=== PATIENT | female | born 1995 | race Caucasian/White ===

== ENCOUNTER 2019-02-05 06:52 | Observation (INO) ==
[2019-02-05] MEDS ORDERED: Epidural Premix (fent/bupiv) 110 ML EP SCH (09:00)
[2019-02-05 09:25] LABS: Amphetamine Screen,Urine Negative ng/mL (Cutoff=1000); Barbiturate Screen,Urine Negative ng/mL (Cutoff=200); Benzodiazepines Screen,Urine Negative ng/mL (Cutoff=200); Cannabinoid Screen,Urine Negative ng/mL (Cutoff = 50); Cocaine Screen,Urine Negative ng/mL (Cutoff= 300); Opiate Screen,Urine Negative ng/mL (Cutoff=300); Phencyclidine Screen,Urine Negative ng/mL (Cutoff=25)
--- NOTE | 2019-02-05 09:47 | Discharge Summary ---
Date of Encounter: 02/05/19 Time of Encounter: 09:46 - Discharge Diagnosis (1) 39 weeks gestation of Priority: Primary Status: Acute Comments: Admit to observation for labor evaluation (2) NST (non-stress test) reactive Priority: Secondary Status: Acute Comments: FHR 135 bpm, moderate variability, +15x15 accels, ocassional early decel. (3) False labor after 37 completed weeks of gestation Priority: Secondary Status: Acute Comments: No cervical change in >2 hrs. Patient is scheduled for IOL on 02/08/[address] Rowland Labor precautions given and patient understands when to return. Data Procedures and tests throughout hospitalization: Laboratory Tests 02/05/19 09:04 Urine Opiates Screen Negative Ur Buprenorphine Scrn Negative Ur Barbiturates Screen Negative Ur Phencyclidine Scrn Negative Ur Amphetamines Screen Negative U Benzodiazepines Scrn Negative Urine Cocaine Screen Negative U Marijuana (THC) Screen Negative Ur Drug Screen Interp See Below Labs on day of discharge: Labs from last 24 hours 02/05/19 09:04 Urine Opiates Screen Negative Ur Buprenorphine Scrn Negative Ur Barbiturates Screen Negative Ur Phencyclidine Scrn Negative Ur Amphetamines Screen Negative U Benzodiazepines Scrn Negative Urine Cocaine Screen Negative U Marijuana (THC) Screen Negative Ur Drug Screen Interp See Below Date of admission: 02/05/19 06:52 Discharging clinician: Lynsey Moya Anticipated date of discharge: 02/05/19 - Patient Status Disposition: Home, Self-Care Condition: Good Functional capacity at discharge: independent ambulation Overall status at discharge: patient is progressing back to baseline - Discharge Instructions Follow Up With: Janeen Rowland MD [Partnered Physician] - - Diet and Activity Activity: resume usual activities as tolerated Diet: regular diet Hospital Course [employer]IP [employer]ATCHER Hospital course: Naty arrived this morning with complaint of possible labor. She reports positive movement and denies vaginal bleeding and fluid leakage. She does report contractions every 3-4 minutes. SVE 1-2 cm without change in >2 hrs. Patient was given the option to be monitoring for an additional hour due to her distance from hospital but she declined at this time. She is to return for more painful contractions, vaginal bleeding, or SROM. She is to return on for scheduled IOL if she does not go into labor prior. Time Attestation: Total time spent providing and/or coordinating discharge services: Time Spent: Less than 30 minutes Exam - Constitutional General appearance IM: A&O X 3, pleasant, no acute distress, answers questions appropriately - Respiratory Respiratory exam: Present: CTAB. Absent: respiratory distress - Cardiovascular Cardiovascular exam IM: Present: RRR, +S1, +S2. Absent: irregular rhythm - GI/Abdominal GI/Abdominal exam IM: normal bowel sounds, soft - Rectal Rectal exam: deferred - External exam: normal external exam Uterine Tone: Firm - Extremities Exam Extremities exam IM: Present: full ROM, normal capillary refill, normal inspection. Absent: calf tenderness - Neurological Exam Neurological exam: alert, normal gait, oriented X3 - VTE Reasons for not Prescribing Prophylaxis: Treatment not Indicated - Low risk for VTE
== END 2019-02-05 10:01 | disposition home or self-care (01) ==
LOC: 1NENULAB
PROVIDERS: ADMIT Advanced Practice Midwife; ATTEND Advanced Practice Midwife

== ENCOUNTER 2019-02-05 18:05 | Inpatient (IN) ==
[~2019-02-05 18:05] MED LIST: *HR* Nalbuphine 10 MG/ML AMPUL IVP PRN; Famotidine 20 MG/2 ML VIAL IVP PRN; Lidocaine 1% 20 ML MDV INFILT PRN; Metoclopramide 10 MG/2 ML VIAL IVP PRN; Naloxone 0.4 MG/ML INJ IVP PRN; Ondansetron 4 MG/2 ML VIAL IVP PRN
[2019-02-05] MEDS ORDERED: Oxytocin 20 units/ LR 1000 mL 20 UNIT/1,000 ML BAG IVC SCH (18:15)
[2019-02-05] MEDS ORDERED: Ringers Solution, Lactated 1,000 ML IVC SCH (18:15)
[2019-02-05 18:51] LABS: Basophils % 0.2 %; Eosinophils # 0.1 K/mcL (0.0-0.6); Eosinophils % 0.6 %; Hematocrit 36.4 % (35.3-44.9); Hemoglobin 12.2 g/dL (11.5-15.4); Immature Granulocytes % 0.7 % (0-4); Lymphocytes # 2.4 K/mcL (0.6-4.6); Lymphocytes % 17.4 %; Mean Corpuscular HGB Conc 33.5 g/dL (31.6-35.5); Mean Corpuscular Hemoglobin 30.7 pg (28.0-33.3); Mean Corpuscular Volume 91.7 fL (83.0-100.0); Mean Platelet Volume 10.4 fL (9.4-12.4); Monocytes # 0.9 K/mcL (0.0-1.3); Monocytes % 6.5 %; Neutrophils # 10.2 K/mcL (1.6-8.9); Platelet Count 262 K/mcL (140-400); Red Blood Count 3.97 M/mcL (3.82-4.97); Red Cell Distribution Width 13.1 % (11.5-14.5); Segmented Neutrophils % 74.6 %; White Blood Count 13.6 K/mcL (4.3-11.1)
[2019-02-05 18:57] LABS: Amphetamine Screen,Urine Negative ng/mL (Cutoff=1000); Barbiturate Screen,Urine Negative ng/mL (Cutoff=200); Benzodiazepines Screen,Urine Negative ng/mL (Cutoff=200); Cannabinoid Screen,Urine Negative ng/mL (Cutoff = 50); Cocaine Screen,Urine Negative ng/mL (Cutoff= 300); Opiate Screen,Urine Negative ng/mL (Cutoff=300); Phencyclidine Screen,Urine Negative ng/mL (Cutoff=25)
[2019-02-05] MEDS: Epidural Premix (fent/bupiv) 110 ML EP SCH (20:47)
[2019-02-06] MEDS: Epidural Premix (fent/bupiv) 110 ML EP SCH (01:59)
[2019-02-06] MEDS ORDERED: Acetaminophen 325 MG TABLET PO PRN (08:47)
[2019-02-06] MEDS ORDERED: Oxytocin 20 units/ LR 1000 mL 20 UNIT/1,000 ML BAG IVC SCH (08:47)
[2019-02-06] MEDS ORDERED: Oxytocin 20 units/ LR 1000 mL 20 UNIT/1,000 ML BAG IVC ONE (08:55)
[2019-02-06] MEDS ORDERED: Prenatal Vit/FA 1 EACH TABLET PO SCH (09:00)
[2019-02-06] MEDS: Ibuprofen 600 MG TABLET PO PRN (22:39)
[2019-02-07] MEDS: Ibuprofen 600 MG TABLET PO PRN (08:40)
[2019-02-07 08:42] VITALS: BP 123/71
== END 2019-02-07 15:00 | disposition home or self-care (01) | DRG 806 ==
LOC: 1NENULAB → 1NENUOBS 02-06 10:20
PROVIDERS: ADMIT Student in an Organized Health Care Education/Training Program; ATTEND Student in an Organized Health Care Education/Training Program

== ENCOUNTER 2021-12-24 09:55 | Inpatient (IN) ==
[2021-12-24] MEDS ORDERED: EPHEDrine 50 MG/ML VIAL IVP PRN (10:19)
[2021-12-24] MEDS ORDERED: Lidocaine 1% 20 ML MDV INFILT PRN (10:21)
[2021-12-24] MEDS ORDERED: Famotidine 20 MG/2 ML VIAL IVP PRN (10:21)
[2021-12-24] MEDS ORDERED: Ondansetron 4 MG/2 ML VIAL IVP PRN (10:21)
[2021-12-24] MEDS ORDERED: *HR* Nalbuphine 10 MG/ML AMPUL IV PRN (10:21)
[2021-12-24] MEDS ORDERED: Azithromycin 500 MG in 0.9 % Sodium Chloride 250 ML IVPB PRN (10:21)
[2021-12-24] MEDS ORDERED: Metoclopramide 10 MG/2 ML VIAL IVP PRN (10:21)
[2021-12-24 11:34] LABS: Basophils % 0.3 %; Eosinophils # 0.1 K/mcL (0.0-0.6); Eosinophils % 0.9 %; Hematocrit 34.4 % (35.3-44.9); Hemoglobin 11.9 g/dL (11.5-15.4); Immature Granulocytes % 0.6 % (0-4); Lymphocytes # 2.7 K/mcL (0.6-4.6); Lymphocytes % 25.4 %; Mean Corpuscular HGB Conc 34.6 g/dL (31.6-35.5); Mean Corpuscular Hemoglobin 31.4 pg (28.0-33.3); Mean Corpuscular Volume 90.8 fL (83.0-100.0); Mean Platelet Volume 10.2 fL (9.4-12.4); Monocytes # 0.7 K/mcL (0.0-1.3); Monocytes % 7.1 %; Neutrophils # 6.9 K/mcL (1.6-8.9); Platelet Count 240 K/mcL (140-400); Red Blood Count 3.79 M/mcL (3.82-4.97); Red Cell Distribution Width 13.2 % (11.5-14.5); Segmented Neutrophils % 65.7 %; White Blood Count 10.4 K/mcL (4.3-11.1)
[2021-12-24] MEDS ORDERED: Oxytocin 30 UNIT/503 ML BAG IVC SCH (13:15)
[2021-12-24] MEDS: Ringers Solution, Lactated 1,000 ML IVC SCH ×3 (13:16→23:49)
[2021-12-24 13:58] LABS: Amphetamine Screen,Urine Negative ng/mL (Cutoff=1000); Barbiturate Screen,Urine Negative ng/mL (Cutoff=200); Benzodiazepines Screen,Urine Negative ng/mL (Cutoff=200); Cannabinoid Screen,Urine Negative ng/mL (Cutoff = 50); Cocaine Screen,Urine Negative ng/mL (Cutoff= 300); Opiate Screen,Urine Negative ng/mL (Cutoff=300); Phencyclidine Screen,Urine Negative ng/mL (Cutoff=25)
[2021-12-24] MEDS ORDERED: Ropivacaine/PF 0.2% 20 ML VIAL ONE (15:48)
[2021-12-24] MEDS: Epidural Premix (fent/bupiv) 110 ML EP SCH ×2 (18:09→23:50)
[2021-12-25] MEDS ORDERED: Ondansetron ODT 4 MG TAB.RAPDIS SL PRN (03:50)
[2021-12-25] MEDS ORDERED: Measles/Mumps/Rubella Vacc 0.5 ML VIAL SQ PRN (03:50)
[2021-12-25] MEDS ORDERED: Benzocaine/Menthol 56 GM AEROSOL SPRAY TP PRN (03:50)
[2021-12-25] MEDS ORDERED: OXYTOCIN/RINGERS LACTATE 10 UNIT/166.6 ML BAG IVC ONE (03:50)
[2021-12-25] MEDS ORDERED: Rho Immune Globulin 1,500 UNIT SYRINGE IM PRN (03:50)
[2021-12-25] MEDS: Ibuprofen 600 MG TABLET PO SCH ×3 (04:40→20:31)
[2021-12-25] MEDS: Acetaminophen 325 MG TABLET PO SCH ×3 (04:40→20:31)
[2021-12-25] MEDS: Lanolin 7 G OINT...G. TP PRN ×2 (04:40→07:54)
[2021-12-25 05:06] LABS: Basophils % 0.2 %; Eosinophils % 0.2 %; Hematocrit 31.4 % (35.3-44.9); Immature Granulocytes % 0.5 % (0-4); Lymphocytes # 2.1 K/mcL (0.6-4.6); Lymphocytes % 13.5 %; Mean Corpuscular HGB Conc 32.5 g/dL (31.6-35.5); Mean Corpuscular Hemoglobin 29.8 pg (28.0-33.3); Mean Corpuscular Volume 91.8 fL (83.0-100.0); Mean Platelet Volume 10.2 fL (9.4-12.4); Monocytes # 0.5 K/mcL (0.0-1.3); Monocytes % 3.5 %; Neutrophils # 12.7 K/mcL (1.6-8.9); Platelet Count 194 K/mcL (140-400); Red Blood Count 3.42 M/mcL (3.82-4.97); Red Cell Distribution Width 13.2 % (11.5-14.5); Segmented Neutrophils % 82.1 %; White Blood Count 15.5 K/mcL (4.3-11.1)
[2021-12-25 05:10] LABS: Hemoglobin 10.2 g/dL (11.5-15.4)
[2021-12-25] MEDS: Prenatal Vit/FA 1 EACH TABLET PO SCH (07:54)
[2021-12-25] MEDS ORDERED: IRON 325 MG PO SCH (09:00)
[2021-12-26] MEDS: Acetaminophen 325 MG TABLET PO SCH ×3 (02:16→14:32)
[2021-12-26] MEDS: Ibuprofen 600 MG TABLET PO SCH ×3 (02:16→14:32)
[2021-12-26 06:46] VITALS: BP 98/69; PULSE 81; TEMP 98; O2SAT 97
[2021-12-26] MEDS: Prenatal Vit/FA 1 EACH TABLET PO SCH (08:39)
== END 2021-12-26 14:44 | disposition home or self-care (01) | DRG 807 ==
LOC: 1NENULAB 09:55 → 1NENUOBS 12-25 06:09
PROVIDERS: ADMIT Student in an Organized Health Care Education/Training Program; ATTEND Student in an Organized Health Care Education/Training Program

== ENCOUNTER 2022-01-01 06:25 | Observation (INO) ==
[2022-01-01] MEDS ORDERED: *HR* OxyCODONE Immed Rel 5 MG TABLET PO PRN (06:43)
[2022-01-01] MEDS ORDERED: Ondansetron 4 MG/2 ML VIAL IVP PRN (06:43)
[2022-01-01] MEDS ORDERED: Acetaminophen 325 MG TABLET PO PRN (06:44)
[2022-01-01] MEDS ORDERED: Ringers Solution, Lactated 1,000 ML IVC SCH ×2 (06:45→10:00)
[2022-01-01] MEDS ORDERED: Ampicillin 2,000 MG in 0.9 % Sodium Chloride Mini Bag 100 ML IVPB SCH (07:00)
[2022-01-01 07:22] LABS: Basophils % 0.3 %; Eosinophils # 0.1 K/mcL (0.0-0.6); Eosinophils % 0.7 %; Hematocrit 31.3 % (35.3-44.9); Hemoglobin 10.2 g/dL (11.5-15.4); Immature Granulocytes % 0.4 % (0-4); Lymphocytes # 1.5 K/mcL (0.6-4.6); Lymphocytes % 10.1 %; Mean Corpuscular HGB Conc 32.6 g/dL (31.6-35.5); Mean Corpuscular Hemoglobin 29.9 pg (28.0-33.3); Mean Corpuscular Volume 91.8 fL (83.0-100.0); Mean Platelet Volume 9.5 fL (9.4-12.4); Monocytes # 0.8 K/mcL (0.0-1.3); Monocytes % 5.2 %; Neutrophils # 12.4 K/mcL (1.6-8.9); Platelet Count 361 K/mcL (140-400); Red Blood Count 3.41 M/mcL (3.82-4.97); Red Cell Distribution Width 12.9 % (11.5-14.5); Segmented Neutrophils % 83.3 %; White Blood Count 14.9 K/mcL (4.3-11.1)
[2022-01-01] MEDS ORDERED: Gentamicin 400 MG in 0.9 % Sodium Chloride 100 ML IVPB ONE (08:30)
[2022-01-01] MEDS: Clindamycin 900 MG/50 ML 900 MG/50 ML IV.SOLN IVPB SCH ×2 (10:39→16:39)
[2022-01-01] MEDS: Acetaminophen 325 MG TABLET PO SCH ×2 (11:16→16:36)
[2022-01-01] MEDS: Ibuprofen 600 MG TABLET PO SCH ×2 (11:56→21:05)
[2022-01-01] MEDS: Ampicillin 2,000 MG in 0.9 % Sodium Chloride Mini Bag 100 ML IVPB SCH ×2 (15:09→21:03)
[2022-01-01 16:19] VITALS: O2SAT 98
[2022-01-01 21:27] VITALS: BP 125/89; PULSE 80; TEMP 98.1
== END 2022-01-01 22:00 | disposition home or self-care (01) ==
LOC: 1NENUOBS → 1NENUPED 15:39
PROVIDERS: ADMIT Advanced Practice Midwife; ATTEND Advanced Practice Midwife